=== PATIENT | male | born 1970 | race Caucasian/White ===

== ENCOUNTER 2021-01-22 14:12 | Emergency (ER) | payer MEDICARE, SELFPAY ==
[2021-01-22 14:15] VITALS: BP 107/61; PULSE 102; RESP 18; TEMP 36.8; O2SAT 100
[2021-01-22] MEDS: SODIUM CHLORIDE 0.9% IV 1,000 ML 999 ML IV CONT (15:21)
[2021-01-22] MEDS: METHYLNALTREXONE 12 MG/0.6 ML VIAL SUB-Q (15:23)
[2021-01-22 15:50] LABS: Basophils Percent Auto 0.1 % (0.2-1.2); Eosinophils Absolute Auto 0.1 K/mm3 (0-0.3); Eosinophils Percent Auto 0.6 % (0-4.4); Hematocrit 41.3 % (42.0-52.0); Hemoglobin 13.5 g/dL (14.0-18.0); Immature Granulocyte Absolute 0.03 K/mm3 (0.00-0.031); Immature Granulocyte Percent A 0.3 % (0-0.5); Lymphocytes Absolute Auto 1.09 K/mm3 (0.9-3.2); Lymphocytes Percent Auto 10.9 % (18.3-44.2); Mean Corpuscular HGB Conc 32.7 g/dl (32-36); Mean Corpuscular Volume 97.9 fl (80-100); Mean Platelet Volume 9.7 fl (7.4-10.4); Monocytes Absolute Auto 0.9 K/mm3 (0.1-0.6); Monocytes Percent Auto 8.6 % (2.6-8.5); Neutrophils Percent Auto 79.5 % (45.5-73.1); Platelet Count Result 326 k/mm3 (150-375); Red Blood Count 4.22 M/mm3 (4.6-6.20); Red Cell Distribution Width 12.5 % (11.5-14.5)
--- NOTE | 2021-01-22 15:50 | ED.GENADULT ---
HPI - General Adult General Chief complaint: Abdominal Pain Stated complaint: constipation Time Seen by Provider: 01/22/21 14:28 Source: patient and family Mode of arrival: ambulatory Limitations: no limitations History of Present Illness HPI narrative: Patient 50-year-old male who presents with concern of constipation patient notes that he had gallbladder surgery at an outside hospital on Saturday and due to bedrest and narcotic medications and the lack of stool softeners became constipated patient has a history of spinal cord injury with chronic constipation and takes pain pills chronically patient at home is attempted [id number] medications with minimal improvement patient on arrival to emergency department is in the room in no distress patient notes some mild discomfort of the abdomen denies any fever chills nausea vomiting Ms. otherwise resting comfortably in the room upon arrival patient lives at home with family Related Data Allergies Allergy/AdvReac Type Severity Reaction Status Date / Time NKDA Allergy Unknown Unknown Uncoded 01/22/21 14:28 Review of Systems Review of Systems: All systems reviewed & are unremarkable except as noted in HPI and below PMFSH Past Medical History Medical History (Updated 01/22/21 @ 18:53 by Marko Jimenez PA-C) Spinal cord injury Surgical History Surgical History (Updated 01/22/21 @ 15:53 by Marko Jimenez PA-C) Hx of cholecystectomy Social History Social History (Updated 01/22/21 @ 15:53 by Marko Jimenez PA-C) Smoking status: Never smoker Gender identity (if verbalized by the patient): Male Exam Narrative: Exam Narrative: GENERAL: Well-appearing, well-nourished, and in no acute distress. HEAD: Normocephalic, atraumatic. EYES: PERRLA and EOMI. ENT: Nares clear, no rhinorrhea or epistaxis. Mucous membranes moist. CHEST: Clear to auscultation. No respiratory distress. No wheezes rales or rhonchi HEART: Regular rate and rhythm. No murmur heard. Normal peripheral pulses. ABDOMEN: Soft, mild tenderness of the abdomen, distended, normal active bowel sounds. EXTREMITIES: Normal range of motion. No edema. SKIN: Warm, dry, no rash. NEURO: No focal deficits. Alert and oriented x3. Cranial nerves II through XII grossly intact PSYCH: Normal mood and affect. Course Course Emergency Course: Patient was evaluated in the emergency department patient was able to successfully have a bowel movement noting that his pressure was relieved he feels significantly better and would like to be discharged and will continue his regular constipation regimen and will follow up as necessary ABCs and vital signs intact and stable Vital Signs Vital signs: Vital Signs Temperature 98.3 F 01/22/21 14:15 Pulse Rate 102 H 01/22/21 14:15 Respiratory Rate 18 01/22/21 14:15 Blood Pressure 107/61 01/22/21 14:15 Pulse Oximetry 100 01/22/21 14:15 Temperature 98.3 F 01/22/21 14:15 Pulse Rate 66 01/22/21 18:39 Respiratory Rate 18 01/22/21 18:39 Blood Pressure 132/84 01/22/21 18:39 Pulse Oximetry 99 01/22/21 18:39 Medical Decision Making MDM Narrative Medical decision making narrative: Patient seemed to be most consistent with constipation was able to pass a large amount of stool after interventions in the emergency department feels much better and would like to be discharged home hemodynamically stable Vital Signs Vital Signs: Vital Signs Temperature 98.3 F 01/22/21 14:15 Pulse Rate 102 H 01/22/21 14:15 Respiratory Rate 18 01/22/21 14:15 Blood Pressure 107/61 01/22/21 14:15 Pulse Oximetry 100 01/22/21 14:15 Temperature 98.3 F 01/22/21 14:15 Pulse Rate 66 01/22/21 18:39 Respiratory Rate 18 01/22/21 18:39 Blood Pressure 132/84 01/22/21 18:39 Pulse Oximetry 99 01/22/21 18:39 Lab Data Result diagrams: 01/22/21 15:15 01/22/21 15:15 Labs: Lab Results 01/22/21 01/22/21 01/22/21 Range
[2021-01-22 15:55] LABS: Add Urine Microscopic? YES; Appearance Urine Clear (Clear); Bilirubin Urine Negative (Negative); Blood Urine Negative (Negative); Color Urine Yellow (Yellow); Glucose Urine UA Negative (Negative); Ketones Urine Negative (Negative); Leukocyte Esterase Ur Negative LEU/UL (Negative); Mucus Urine Few /lpf; Nitrate Urine Negative (Negative); Protein Urine 1+ mg/dL (Negative); RBC Urine 0-2 /hpf (0-2); Specific Grav Ur 1.024 (1.001-1.035); Urobilinogen Urine Negative mg/dL (<2.0); WBC Urine 0-3 /hpf
[2021-01-22 16:06] LABS: Alanine Aminotransferase 99 U/L (4-50); Alkaline Phosphatase 210 U/L (38-126); Anion Gap 5 mmol/L (8-16); Aspartate Amino Transferase 38 U/L (17-59); Bilirubin,Total 0.6 mg/dL (0.2-1.3); Blood Urea Nitrogen 9 mg/dL (9-20); Calcium 9.4 mg/dL (8.4-10.2); Carbon Dioxide 30 mmol/L (22-30); Chloride 104 mmol/L (98-107); Estimated CRCL calculation 154 ml/min; Estimated Glomerular Filt Rate > 60; Glucose 93 mg/dL (75-110); Lipase 33 U/L (23-300); Potassium 4.1 mmol/L (3.4-5.0); Sodium 139 mmol/L (137-145)
[2021-01-22 16:27] VITALS: BP 106/71; PULSE 92; RESP 18; O2SAT 100
--- NOTE | 2021-01-22 16:50 | PC.NURSE ---
PA at bedside doing fecal impaction
[2021-01-22] MEDS: polyethylene glycoL 3350 17 GM POWD.PACK PO (17:14)
[2021-01-22 18:39] VITALS: BP 132/84; PULSE 66; RESP 18; O2SAT 99
== END 2021-01-22 18:59 | disposition home or self-care (01) ==
PROVIDERS: Emergency Medicine Emergency Medical Services; Emergency Provider Emergency Medicine
DX: K59.00 Constipation, unspecified (principal); Z87.828 Personal history of other (healed) physical injury and trauma
CPT/HCPCS: 36415; 51701; 80053; 81001; 83690; 85025; 96360; 96372; 99283; J2212; J7030

== ENCOUNTER 2023-01-30 13:03 | Outpatient (CLI) | payer MEDICARE, SELFPAY ==
--- NOTE | ~2023-01-30 | XR_ITS ---
AP view of the pelvis and AP and lateral views of the lateral hips Clinical history: Pain Findings: No acute fracture or dislocation is seen. Left hip arthroplasty in place. Right hip joint a nd bilateral SI joints are present intact. No hardware complication is evident. Soft tissues are unre markable. Impression: No acute abnormality. Left hip arthroplasty in place. Reviewed, dictated and finalized at location . Impression: No acute abnormality. Left hip arthroplasty in place.
== END 2023-01-30 13:04 | disposition home or self-care (01) ==
PROVIDERS: PCP Family Medicine; Visit Provider Physical Medicine & Rehabilitation
DX: G82.53 Quadriplegia, C5-C7 complete (principal); Z96.642 Presence of left artificial hip joint
CPT/HCPCS: 73521

== ENCOUNTER 2023-04-16 16:14 | Outpatient (CLI) | payer MEDICARE, SELFPAY ==
--- NOTE | ~2023-04-16 | XR_ITS ---
EXAMINATION:XR_[id number] DATE: 04/16/2023 16:42 INDICATION: Cervical dystonia TECHNIQUE: AP, lateral, lateral swimmers and odontoid views of the cervical spine are provided. COMPARISON: 11/12/2017 FINDINGS: Mild upper cervical levocurvature and mild cervical thoracic dextrocurvature. Sagittal alignment is n ormal. Odontoid is intact. Normal atlantoaxial interval. C3-C5 anterior spinal fusion with anterior plate and screw fixation. Also appears to be posterior spinal fusion with solid osseous bridging of t he posterior elements of C3-C5 with cerclage wire about the spinous processes of C4 and C5 as well as left and right lateral mass plate and screw fixations also at C4-C5. Unfused vertebral body heights are normal. Interval progression of now severe disc height loss with degenerative endplate changes at C6-C7. Unchanged moderate disc height loss C5-C6 and mild disc height loss at C7-T1. There is severe facet osteoarthritis at C2-C3 and C7-T1. Prevertebral soft tissues are normal. Visualized apices of lungs are clear. IMPRESSION: 1. C3-C5 instrumented anterior and posterior spinal fusion. 2. Progression of cervical spondylosis with now severe disc height loss and degenerative endplate eveline nges at C6-C7. Reviewed, dictated and finalized at location B. IMPRESSION: 1. C3-C5 instrumented anterior and posterior spinal fusion. 2. Progression of cervical spondylosis with now severe disc height loss and deg enerative endplate changes at C6-C7.
== END 2023-04-16 16:15 | disposition home or self-care (01) ==
LOC: ANHIMG 16:22
PROVIDERS: PCP Family Medicine; Visit Provider Physical Medicine & Rehabilitation
DX: G24.3 Spasmodic torticollis (principal); Z98.1 Arthrodesis status; M43.02 Spondylolysis, cervical region
CPT/HCPCS: 72040